=== PATIENT | female | born 1985 | race Caucasian/White ===

== ENCOUNTER 2016-02-23 09:44 | Emergency (ER) | payer OTHER ==
[~2016-02-23] VITALS: Ht 170.2 cm; Wt 52.7 kg
[~2016-02-23 09:44] MED LIST: IBUP800T28 PO; OXYC1TAB24 PO; QUET100T69 PO; SERT100T9 PO; SUMA25TA3 PO
[2016-02-23 09:48] VITALS: BP 173/101; PULSE 109; RESP 12; O2SAT 99
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
[2016-02-23] MEDS ORDERED: 0.9% Sodium Chloride 1,000 ML IV ONE (10:09)
[2016-02-23] MEDS ORDERED: Alum-Mag Hydrox-Simeth 30 mL Suspension PO ONE (10:10)
[2016-02-23] MEDS ORDERED: Ondansetron 2 mg/mL 2 mL Inj IVPUSH PRN (10:10)
[2016-02-23 11:06] LABS: BASOPHILS % (AUTO) 0.2 % (0-3); EOSINOPHILS % (AUTO) 0.8 % (0-5); MONOCYTES % (AUTO) 6.2 % (4-12); Mean Corpuscular Hemoglobin 20.6 pg (27.0-35.0); Mean Corpuscular Volume 67.9 fL (81-100); NEUTROPHILS % (AUTO) 74.4 % (40-74); Platelet Count 425 bil/L (150-400)
[2016-02-23 11:37] LABS: Magnesium 2.1 mg/dL (1.6-2.6)
[2016-02-23] MEDS ORDERED: FERR-83 PO (13:20)
[2016-02-23] MEDS ORDERED: DOCU-41 PO (13:20)
[2016-02-23] MEDS ORDERED: ASCO500C6 PO (13:20)
[2016-02-23 13:30] VITALS: PULSE 105; RESP 16; O2SAT 100
== END 2016-02-23 13:31 | disposition home or self-care (01) ==
LOC: SED 09:44
DX: R10.11 Right upper quadrant pain (principal); R10.31 Right lower quadrant pain; I10 Essential (primary) hypertension; F17.200 Nicotine dependence, unspecified, uncomplicated
CPT/HCPCS: 36415; 80053; 81002; 81025; 83690; 83735; 85025; 96361; 96374; 96375; 99284; J2270; J2405; J7030

== ENCOUNTER 2016-03-02 19:00 | Emergency (ER) | payer OTHER ==
[~2016-03-02] VITALS: Ht 167.6 cm; Wt 54.5 kg
[~2016-03-02 19:00] MED LIST changes: +ASCO500C6 PO; +DOCU-41 PO; +FERR-83 PO
[2016-03-02 19:07] VITALS: BP 167/106; PULSE 129; RESP 14; O2SAT 99
[2016-03-02] MEDS ORDERED: 0.9% Sodium Chloride 1,000 ML IV ONE ×2 (19:19→21:10)
--- NOTE | 2016-03-02 19:29 | ED.REPORT ---
HPI-Abd Pain F Under 40 Date of Service Mar 02, 2016 ED Provider: Dwayne Moore MD Patient is a 30 year old female with a history of polysubstance abuse, hypertension, and anxiety who presents to the ED with right sided flank pain onset 1 week ago. The patient states that the pain is constant and severe, worse with movement. Her pain is also present on her left side intermittently, but she states that it is less severe. Patient reports taking a muscle relaxer at home earlier today. Patient was seen in the ED on 02/22 due to right sided abdominal pain, with no etiology for her pain identified. Patient refused a rectal exam after admitting to bloody stool and was found to have trace blood in her urine. Patient also tested positive for opiates and methamphetamine. She was advised to follow-up with her PCP. The patient states that she has an appointment with her PCP on March 11, as this was the soonest she could see her. Patient has not previously had kidney stones or pyelonephritis. She denies fever, nausea, vomiting, dysuria, hematuria, vaginal discharge, constipation, or diarrhea. Her LNMP was at the end of January and she is on the Depo shot. Nursing Notes Stated Complaint: RIGHT SIDE ABDOMINAL PAIN Chief Complaint: Female Abdominal Pain Nursing Notes Reviewed: Yes Allergies: Coded Allergies: No Known Allergies (Verified , 10/29/15) Scheduled Ascorbic Acid (Vitamin C) 500 Mg Capsule.er 500 MG PO DAILY Ferrous Sulfate (Ferrous Sulfate) 325 Mg Tablet 325 MG PO TID Quetiapine Fumarate (Quetiapine Fumarate) 100 Mg Tablet 100 MG PO HS Sertraline HCl (Sertraline) 100 Mg Tablet 200 MG PO QAM Scheduled PRN Docusate Sodium (Colace) 100 Mg Capsule 100 MG PO BID PRN PRN For Constipation Ibuprofen (Ibuprofen) 800 Mg Tablet 800 MG PO TID PRN PRN For Pain Sumatriptan Succinate (Sumatriptan Succinate) 25 Mg Tablet 1 TAB PO DAILY PRN PRN For Headache oxyCODONE-Acetaminophen 5-325 mg (oxyCODONE-Acetaminophen 5-325 mg) 1 Each Tablet 1-2 TAB PO Q4H PRN PRN For Pain oxyCODONE-Acetaminophen 5-325 mg (oxyCODONE-Acetaminophen 5-325 mg) 1 Each Tablet 1-2 TAB PO Q6H PRN PRN For Pain General Time Seen by : 19:19 Chief Complaint Abdominal pain, Flank pain right Hx Obtained From: Patient Arrived By: Walk-in Sudden in Onset?: No Onset Occurred: 1 week ago Symptom Duration: Since onset Progression since Onset: Gradually worsening Location: : Flank right Quality: Painful Radiation: : Abdomen lower Severity: Current: Severe Severity: Maximum: Severe Recent Healthcare: No recent doctor visit, No recent hospitalization Similar Sx Previous: No Past Medical History Past Medical History Notes: Patient tested positive for opiates and methamphetamine during ED visit on 02/23/2016 Past Medical History Hypertension Migraines Depression Anxiety Anemia Past Surgical History Denies Smoking History Current Every Day Smoker Social History Alcohol Use: "Social" Drug Use: IV drugs, Meth Other Social History: Good social support, Local resident Ambulatory Status Independent Review of Systems Constitutional: Denies: Chills, Fever GI: Reports: Abdominal pain, Denies: Nausea, Vomiting Female: Reports: Flank pain, Denies: Dysuria, Hematuria, , Vaginal bleeding - abnl, Vaginal discharge Complete sys rev & neg: except as marked. Physical Exam Initial Vital Signs Vital Signs (First) Date Time Temp Pulse Resp B/P Pulse Ox O2 Delivery O2 Flow Rate FiO2 03/02/16 19:07 37.2 129 14 167/106 99 Room Air Initial VS: Reviewed Head / Eyes: Atraumatic, Normocephalic, PERRL ENT: Conjunctiva normal, No scleral icterus Neck: Supple, Full range of motion Extremities: Vascular intact, Neuro intact Skin: Warm, Dry Neurologic: Alert, Oriented, Nonfocal Psychiatric: Mood/affect normal, Behavior normal, Normal thought content General/Constitutional: Awake, Alert, No acute distress Respiratory / Chest: Breath sounds NL, Breath sounds = bilat, No respiratory distress, No rales, No rhonchi, No wheezing Cardiovascular: Heart rate NL, Regular rhythm, Heart sounds NL, No gallop, No murmurs, No rubs Abdomen: Soft, BS normoactive Tenderness/Guarding/Rebound: Positive: Tender RUQ... Back: No midline vertebral tend Flank / Spine / Paraspinal: Positive: Flank tender R, Negative: Flank tender L Interpretation & Diagnostics Interpretation & Diagnostics: Urine Test: Negative Urine Dip: pH of 3, 3+ leukocytes, positive for nitrites, 1+ urobilinogen, 1+ blood, all else negative. Drug Screen / Level Interp: Urine positive opiate, Urine pos amphetamines, and TCAs Lab Results Interpretation Result Diagram: 03/02/16195603/02/161956 Test 03/02/16 19:57 03/02/16 21:15 White Blood Count 11.8th/mm3 (3.8-10.1) Red Blood Count 3.93mil/mm3 (3.90-5.20) Hemoglobin 8.2g/dL (12.0-15.6) Hematocrit 26.7% (35.0-46.0) Mean Corpuscular Volume 67.9fL (81-100) Mean Corpuscular Hemoglobin 20.9pg (27.0-35.0) Mean Corpuscular Hemoglobin Concent 30.7% (32.0-37.0) Red Cell Distribution Width 18.0% (12.3-15.4) Platelet Count 639bil/L (150-400) Neutrophils (%) (Auto) 78.8% (40-74) Lymphocytes (%) (Auto) 12.9% (14-46) Monocytes (%) (Auto) 6.2% (4-12) Eosinophils (%) (Auto) 1.5% (0-5) Basophils (%) (Auto) 0.3% (0-3) Sodium Level 138mEq/L (134-144) Potassium Level 3.7mEq/L (3.5-5.2) Chloride Level 102mEq/L (97-108) Carbon Dioxide Level 22mmol/L (18-29) Blood Urea Nitrogen 9mg/dL (6-20) Creatinine 0.70mg/dL (0.57-1.00) Estimat Glomerular Filtration Rate 141mL/min (>59) Glucose Level 138mg/dL (60-99) Lactic Acid Level 1.4mmol/L (0.4-2.0) Calcium Level 8.8mg/dL (8.5-10.1) Magnesium Level 2.0mg/dL (1.6-2.6) Total Bilirubin 0.2mg/dL (0.0-1.2) Aspartate Amino Transf (AST/SGOT) 17U/L (0-50) Alanine Aminotransferase (ALT/SGPT) 11U/L (0-32) Alkaline Phosphatase 34U/L (25-150) Total Protein 7.5g/dL (6.4-8.4) Albumin 3.2g/dL (3.4-5.0) Lipase 22U/L (13-60) Urine Color Yellow (YELLOW) Urine Appearance Hazy (CLEAR,HAZY) Urine pH 6.0 (5.0-8.0) Urine Specific [place] 1.025 (1.003-1.035) Urine Protein Negativemg/dL (NEG,TRACE) Urine Glucose (UA) Negativemg/dL (NEGATIVE) Urine Ketones Negativemg/dL (NEGATIVE) Urine Occult Blood Negative (NEGATIVE) Urine Nitrite Negative (NEGATIVE) Urine Bilirubin Negative (NEGATIVE) Urine Urobilinogen Normalmg/dL (NORMAL) Urine Leukocyte Esterase Trace (NEGATIVE) Urine RBC 0-2/hpf (0-2) Urine WBC 0-5/hpf (0-5) Urine Epithelial Cells None/hpf (NONE-MOD) Urine Crystals None seen (NONE SEEN) Urine Bacteria Few/hpf (NONE-FEW) Urine Hyaline Casts None/lpf (NONE) Urine Granular Casts None seen (NONE SEEN) Urine Waxy Casts None seen (NONE SEEN) Urine Red Blood Cell Casts None seen (NONE SEEN) Urine White Blood Cell Casts None seen (NONE SEEN) Urine Mucus None seen (None Seen) Urine Trichomonas None seen (NONE SEEN) Urine Yeast None (NONE SEEN) Urinalysis Comment Amorphous sediment Urine Culture Reflexed Indicated Re-Eval/Medical Decision Med Decision/Clinical Course Med Decision/Clinical Course: 30 year with R sided abdominal pain, second ED visit for same in 1 week. No ferver, exam is remarkably tender R upper and lower abd. Has chronic microcytic anemia, thrombocytosis. Was given rocephin based on dip UA with +++ Le reported. Formal UA much less impressive. It was my plan to get CT abd with IV and oral contrast, Pt refused. Left AMA shortly thereafter. Do not think continued abx for UTI are indicated. Source of Hx: Old records Re-Evaluation/Progress #1: Time of Eval: 20:16 Re-Evaluation/Progress Note: Rechecked the patient. She reports ongoing pain and she has not yet been able to provide a urine sample. Re-Evaluation/Progress #2: Time of Eval: 22:25 Patient Status: Condition improved Re-Evaluation/Progress Note: Rechecked the patient, who reports ongoing pain. The patient denies any bloody or tarry stool, hematemesis, or other symptoms. Patient was informed that she is anemic, which has been an ongoing issue. Patient was told to take iron but the patient states that she has not been doing so. She also now admits to recent methamphetamine use. However, she states that she is not a daily user, even though she was also positive while in the ED on 02/22. Patient is now tender in the RLQ. She now reports that the pain has been present for the past 1.5 weeks, worsening in severity. Patient was advised that she will need a CT scan of her abdomen and to drink contrast. The patient became agitated, stating that "this should have been done in the first place". Patient now requests to go outside to smoke a cigarette. She was informed that she cannot leave the ED to do so, and that going outside would mean leaving against medical advice. Patient was offered a nicotine patch, which she declines. Re-Evaluation/Progress #3: Time of Eval: 22:36 Re-Evaluation/Progress Note: Patient would like to leave the ED AMA. Refused to wait for discharge instructions. Advised of concern for possible serious illness including appendcitis, refusing to stay any longer. Appears to have capacity to make decisions. Counseled Regarding: Diagnosis, Lab results, Need for follow-up, When/why to return to ED Discharge & Departure Primary Impression: Abdominal pain Abdominal location: right lower quadrant Qualified Code: R10.31 - Right lower quadrant pain Disposition: AGAINST MEDICAL ADVICE Discharge Condition All VS Reviewed: Yes Condition: Stable Additional Instructions: refused to wait for discharge instructions. Referrals: Mari Jones MD (PCP) Marlin Attestation Portions of this note were transcribed by Zahira Millan. I, Dr. Moore personally performed the history, physical exam and medical decision-making; I reviewed and confirmed the accuracy of the information in the transcribed note. Signed by: Marlin Shea, 03/02/2016 0536 copies to: Mari Jones MD, Donald L MD Mar 02, 2016 19:29 Zahira Millan Mar 02, 2016 19:39
[2016-03-02 20:05] LABS: BASOPHILS % (AUTO) 0.3 % (0-3); EOSINOPHILS % (AUTO) 1.5 % (0-5); MONOCYTES % (AUTO) 6.2 % (4-12); Mean Corpuscular Hemoglobin 20.9 pg (27.0-35.0); Mean Corpuscular Volume 67.9 fL (81-100); NEUTROPHILS % (AUTO) 78.8 % (40-74); Platelet Count 639 bil/L (150-400)
[2016-03-02] MEDS: HYDROmorphone 0.5 mg/0.5 mL iSecure Syringe IVPUSH PRN ×2 (20:28→22:15)
[2016-03-02 21:20] VITALS: BP 154/86; PULSE 107; RESP 16; O2SAT 97
[2016-03-02] MEDS ORDERED: cefTRIAXone Inj 2,000 MG in IV Premix 1 EACH IV ONE (21:30)
[2016-03-02 21:48] LABS: APPEARANCE,URINE HAZY (CLEAR,HAZY); COLOR,URINE YELLOW (YELLOW); OCCULT BLOOD,URINE NEGATIVE (NEGATIVE); UROBILINOGEN,URINE NORMAL (NORMAL)
== END 2016-03-02 22:46 | disposition left against medical advice (07) ==
LOC: SED 19:00
DX: R10.31 Right lower quadrant pain (principal); I10 Essential (primary) hypertension; F15.10 Other stimulant abuse, uncomplicated; F11.10 Opioid abuse, uncomplicated; F17.210 Nicotine dependence, cigarettes, uncomplicated
CPT/HCPCS: 36415; 80053; 81000; 81025; 83605; 83690; 83735; 85025; 87086; 87088; 87186; 96361; 96365; 96375; 96376; 99285; J0696; J1170; J7030